=== PATIENT | female | born 1960 | race Caucasian/White ===

== ENCOUNTER → 2024-11-29 | Outpatient (CLI) | payer MEDICARE, MEDICAID | LOC: M RAD 10:24 | PROVIDERS: ATTEND Psychiatry & Neurology Neurology | DX: R26.2 Difficulty in walking, not elsewhere classified (principal); M54.59 Other low back pain; M79.604 Pain in right leg; G31.9 Degenerative disease of nervous system, unspecified; M47.816 Spondylosis without myelopathy or radiculopathy, lumbar region; M47.817 Spondylosis without myelopathy or radiculopathy, lumbosacral region ==